=== PATIENT | female | born 1945 | race Caucasian/White ===

== ENCOUNTER → 2025-01-03 | Outpatient (CLI) | payer MEDICARE, SELFPAY ==
--- NOTE | 2025-01-03 12:51 | XR_ITS ---
Examination: AP bilateral knees 2 views Right lateral knee left lateral knee 2 views Bilateral axial knees single view TECHNIQUE: Bilateral AP knees standing single view, bilateral PA knees standing single view 30 degrees flexion Standing right lateral knee, left lateral knee 2 views Bilateral axial knees single view total 5 views Exam date and time: January 03, 2025 1451 hours INDICATIONS: Bilateral knee pain beginning 3 years ago. FINDINGS: Severe narrowing medial joint spaces bilaterally, [id number] right knee Significant osteoarthritis patellofemoral joints No fracture or dislocation IMPRESSION: Severe narrowing medial joint spaces bilaterally
== END | disposition home or self-care (01) ==
LOC: CDIM 12:44
PROVIDERS: PCP Internal Medicine; Referring Provider Orthopaedic Surgery; Visit Provider Orthopaedic Surgery
DX: M25.862 Other specified joint disorders, left knee (principal); M25.861 Other specified joint disorders, right knee
CPT/HCPCS: 73562

== ENCOUNTER → 2025-03-12 | Outpatient (CLI) | payer MEDICARE, SELFPAY ==
--- NOTE | 2025-03-12 08:55 | XR_ITS ---
Examination: Bilateral knees 2 views Right lateral knee left lateral knee 2 views Bilateral axial knees single view TECHNIQUE: Bilateral AP knees standing single view, bilateral PA knees standing flexion Standing right lateral knee left lateral knee 2 views Bilateral axial knees single view total 5 views Exam date and time: March 12, 2025 0926 hours INDICATIONS: Status post left knee replacement with right knee pain months FINDINGS: Advanced narrowing medial joint space right knee Moderate to advanced narrowing right patellofemoral joint No fracture Left knee arthroplasty with satisfactory alignment No patellar dislocation IMPRESSION: Advanced narrowing medial joint space right knee Moderate to advanced right patellofemoral joint
== END | disposition home or self-care (01) ==
LOC: CDIM 08:40
PROVIDERS: PCP Internal Medicine; Referring Provider Orthopaedic Surgery; Visit Provider Orthopaedic Surgery
DX: M25.861 Other specified joint disorders, right knee (principal); Z96.652 Presence of left artificial knee joint
CPT/HCPCS: 73562